=== PATIENT | male | born 1980 | race Caucasian/White ===

== ENCOUNTER → 2020-10-21 | Day surgery (SDC) | payer OTHER ==
[~2020-10-21] MED LIST: 0.9 % SODIUM CHLORIDE 10 ML VIAL. ONE; BUPIVACAINE MPF 0.25% 10 ML VIAL. ONE; DEXAMETHASONE SOD PHOS 10 MG/ML VIAL. ONE; IOHEXOL 300 MG/ML 50 ML VIAL. ONE; LIDOCAINE 1% PF 30 ML VIAL. ONE
[2020-10-21 13:27] VITALS: BP 133/69
== END | disposition home or self-care (01) ==
LOC: SURG 12:44
PROVIDERS: ATTEND Anesthesiology
DX: M54.16 Radiculopathy, lumbar region (principal); M51.36 Other intervertebral disc degeneration, lumbar region; Z91.041 Radiographic dye allergy status; Z79.899 Other long term (current) drug therapy; Z91.013 Allergy to seafood; Z82.49 Family history of ischemic heart disease and other diseases of the circulatory system
CPT/HCPCS: 64483; 64484; J1100; J3490; Q9967